=== PATIENT | male | born 1960 | race Two or more races ===

== ENCOUNTER → 2020-03-15 | Outpatient (CLI) | payer OTHER | END | disposition home or self-care (01) | LOC: HBOWC 09:49 | PROVIDERS: ATTEND Emergency Medicine | DX: S91.302A Unspecified open wound, left foot, initial encounter (principal); S91.002A Unspecified open wound, left ankle, initial encounter; S91.105A Unspecified open wound of left lesser toe(s) without damage to nail, initial encounter; F17.200 Nicotine dependence, unspecified, uncomplicated; F12.10 Cannabis abuse, uncomplicated; Z59.0 Homelessness; W19.XXXA Unspecified fall, initial encounter; Y93.89 Activity, other specified; Y92.89 Other specified places as the place of occurrence of the external cause; Y99.8 Other external cause status | CPT/HCPCS: 11042; G0463 ==

== ENCOUNTER → 2020-03-22 | Outpatient (CLI) | payer OTHER ==
[~2020-03-22] MED LIST: LIDOCAINE 4% 50 ML SOLUTION TP ONE
== END | disposition home or self-care (01) ==
LOC: HBOWC 08:54
PROVIDERS: ATTEND Emergency Medicine
DX: S91.302D Unspecified open wound, left foot, subsequent encounter (principal); S91.002D Unspecified open wound, left ankle, subsequent encounter; S91.105D Unspecified open wound of left lesser toe(s) without damage to nail, subsequent encounter; F17.200 Nicotine dependence, unspecified, uncomplicated; F12.10 Cannabis abuse, uncomplicated; Z59.0 Homelessness; W19.XXXD Unspecified fall, subsequent encounter
CPT/HCPCS: 11042; Z7610

== ENCOUNTER → 2020-04-01 | Outpatient (CLI) | payer OTHER ==
[~2020-04-01] MED LIST changes: +LIDOCAINE 4% 50 ML SOLUTION ONE; -LIDOCAINE 4% 50 ML SOLUTION TP ONE
== END | disposition home or self-care (01) ==
LOC: HBOWC 10:53
PROVIDERS: ATTEND Podiatrist
DX: L97.522 Non-pressure chronic ulcer of other part of left foot with fat layer exposed (principal); S91.302D Unspecified open wound, left foot, subsequent encounter; S91.002D Unspecified open wound, left ankle, subsequent encounter; S91.105D Unspecified open wound of left lesser toe(s) without damage to nail, subsequent encounter; F17.200 Nicotine dependence, unspecified, uncomplicated; F12.10 Cannabis abuse, uncomplicated; Z59.0 Homelessness; W19.XXXD Unspecified fall, subsequent encounter
CPT/HCPCS: 11042; Z7610